=== PATIENT | female | born 2000 | race Caucasian/White ===

== ENCOUNTER 2020-01-23 21:34 | Emergency (ER) | payer OTHER, SELFPAY ==
[2020-01-23 21:47] VITALS: BP 146/86; PULSE 105; RESP 18; TEMP 37.3; O2SAT 100; BMI 22.6
[2020-01-23 22:25] LABS: RBC Urine None Seen (0-5/HPF)
[2020-01-23 22:36] LABS: Squamous Epithelial Cell Urine 1-5 /HPF (0-5/HPF); WBC Urine 30-100/HPF (0-5/HPF)
[2020-01-23 22:37] LABS: Bacteria Urine Many (>30); Culture Indicated Urine Specimen Cultured
--- NOTE | 2020-01-23 22:40 | ED_ITS ---
HPI - Back Pain/Injury General Chief Complaint: Back Pain/Injury Stated Complaint: back to stomach cramping Time Seen by Provider: 01/23/20 22:40 Source: patient Limitations: no limitations History of Present Illness HPI Narrative: 19-year-old young woman who complains of mild dysuria at the end of avoid and mild right flank pain with low abdominal cramping. Today she was wondering if perhaps there is some left flank pain as well. She denies fevers, vomiting, diarrhea, vaginal discharge, new sexual partners, history of recurrent bladder infections. Only medications include oral control pills. Related Data Previous Rx's Medication Instructions Recorded sulfamethoxazole-trimethoprim 1 tab PO BID #10 tab 01/23/20 Allergies Allergy/AdvReac Type Severity Reaction Status Date / Time No Known Drug Allergies Allergy Verified 01/23/20 21:47 Review of Systems Review of Systems Narrative: Pertinent positive and negative findings as per HPI Remainder of review of systems is otherwise unremarkable for Constitutional: Fevers, chills, weakness ENT: No sore throat, neck pain, ear pain CV: Chest pain, palpitations, dyspnea on exertion Respiratory: Cough, wheeze, dyspnea Patient History Medical History (Updated 01/23/20 @ 22:56 by Maranda Sanchez MD) Healthy adult (Acute) Social History Smoking Status: Never smoker Smoking Status: Never smoker Substance Use Type: does not use Exam Narrative Exam Narrative: General: Healthy appearing, in no acute distress. Able to give a complete and coherent history. Well-nourished well-developed Respiratory: Lungs are clear to auscultation, no wheezing no rales no rhonchi. Full and symmetrical air movement Cardiac: Regular rate and rhythm no murmurs no bruits Abdomen: Soft nontender good bowel tones, no flank pain Skin: Warm and dry, no rashes Neurologic: Grossly neurologically intact with no obvious asymmetries or abnormalities Extremities: No trauma, well perfused Psych: Cooperative, appropriate insight and affect Initial Vital Signs Initial Vital Signs: Vital Signs Temperature 99.1 F 01/23/20 21:47 Pulse Rate 105 H 01/23/20 21:47 Respiratory Rate 18 01/23/20 21:47 Blood Pressure 146/86 H 01/23/20 21:47 Pulse Oximetry 100 01/23/20 21:47 Course Orders Ordered: ED Orders 01/23/20 22:00 Urine Culture Stat Urine Microscopic Stat Discontinued Medications Trimethoprim/Sulfamethoxazole (Bactrim Ds) 1 tab PO NOW ONE Stop: 01/23/20 22:49 Last Admin: 01/23/20 22:55 Dose: 1 tab Documented by: Vital Signs Vital signs: Vital Signs - 8 hr 01/23/20 21:47 Temperature 99.1 F Pulse Rate 105 H Respiratory Rate 18 Blood Pressure 146/86 H Pulse Oximetry 100 MDM - Back Pain/Injury Medical Records Attestation: I reviewed the patient's medical records. Lab Data Attestation: I reviewed the patient's lab results. Labs: Lab Results 01/23/20 Range/Units 22:00 Urine RBC None seen (0-5/HPF) Urine WBC 30-100/hpf H (0-5/HPF) Ur Squamous Epith Cells 1-5 /hpf (0-5/HPF) Urine Bacteria Many (>30) H (None) Ur Culture Indicated? Specimen cultured Point of Care Testing Test Results Negative Urine Dip Bedside Urine Glucose Negative Bedside Urine Bilirubin - Negative Bedside Urine Ketone - Negative Urine Specific [place] 1.010 Bedside Urine Occult Blood +++ Bedside Urine pH 6.0 Bedside Urine Protein + 30 Bedside Urine Urobilinogen - Negative Bedside Urine Nitrite - Negative Bedside Urine Leukocytes +++ 500 Esterase MDM Narrative Medical decision making narrative: 19-year-old woman with dysuria developing right flank pain no fevers. Urinalysis is most consistent with the UTI. Will treat with Septra. She is on control pills so cautioned that back up form of control should be used for the rest of this control pack. She is safe for home discharge Discharge Plan Departure Patient Disposition: Home Clinical Impression: UTI (urinary tract infection) Qualifiers: Urinary tract infection type: acute cystitis Hematuria presence: without hematuria Qualified Code(s): N30.00 - Acute cystitis without hematuria Instructions: DI for Urinary Tract Infection (UTI) Activity Restrictions/Additional Instructions: Thank you for coming in Your urinalysis looks like you have a simple bladder infection. I am going to give you 5 days of trimethoprim sulfamethoxazole, a sulfa antibiotic to treat the bladder infection. If your symptoms do not improve or you feel like your developing fevers or worsening flank pain do need to return to the emergency department. Antibiotics can sometimes interfere with oral control pills. I would recommend a backup form of control until you begin your next pack of pills. I hope you feel better Prescriptions: New sulfamethoxazole-trimethoprim 800-160 mg tablet 1 tab PO BID Qty: 10 RF: 0
[2020-01-23] MEDS: TRIMETH/SULFA 160/800 (DS) TABLET 1 TAB PO (22:55)
[2020-01-23 23:02] VITALS: BP 114/67; PULSE 72; RESP 16; O2SAT 100
== END 2020-01-23 23:03 | disposition home or self-care (01) ==
PROVIDERS: Emergency Provider Emergency Medicine
DX: N30.00 Acute cystitis without hematuria (principal)
CPT/HCPCS: 81003; 81015; 81025; 87077; 87086; 87186; 99283